=== PATIENT | male | born 1950 | race Hispanic/Latino ===

== ENCOUNTER 2021-04-10 06:37 | Day surgery (SDC) | payer MEDICARE ==
[2021-04-07 14:36] LABS: BASOPHILS % (AUTO) 0.3 % (0.0-5.0); EOSINOPHILS % (AUTO) 1.1 % (0.0-8.0); HEMATOCRIT 36.8 % (42-54); LYMPHOCYTES % (AUTO) 23.1 % (21.0-51.0); MEAN CORPUSCULAR HEMOGLOBIN 29.5 pg (27.0-33.0); MEAN CORPUSCULAR HGB CONC 33.4 g/dL (32.0-36.0); MEAN CORPUSCULAR VOLUME 88.2 fL (79-99); MONOCYTES % (AUTO) 8.8 % (3.0-13.0); NEUTROPHILS % (AUTO) 66.4 % (40.0-77.0); PLATELET COUNT (AUTO) 338 K/uL (130-400); RED BLOOD CELL COUNT(AUTO) 4.17 MIL/uL (4.50-6.20); RED CELL DISTRIBUTION WIDTH 12.9 % (11.0-15.5); WHITE BLOOD COUNT (AUTO) 9.3 K/uL (4.8-10.8)
[2021-04-07 14:47] LABS: CREATININE 0.8 mg/dL (0.5-1.5); POTASSIUM 4.4 mmol/L (3.5-5.1)
[2021-04-09 10:57] VITALS: BP 103/56
[~2021-04-10] VITALS: Ht 172.7 cm; Wt 71.5 kg
[2021-04-10] VITALS (17 sets, daily range): BP systolic 93–129; BP diastolic 46–69
[~2021-04-10 06:37] MED LIST: AEC81 PO; AMLO1CAP PO; AMOX1TAB16 PO; ASCO100031 PO; BIMA12.5OS OU; BRIM5DRO OU; CYCL30DR OU; DAPA5TAB PO; EZET10TA48 PO; FLUT16H NASAL; ISOS30TA92 PO; LEVO25CA4 PO; METF-444 PO; MULT-1258 PO; NITR0.4T50 SL; OMEG-148 PO; ROSU20TA23 PO; TAMS-1 PO; VITAMIN D2 PO
[2021-04-10] MEDS ORDERED: SODIUM CHLORIDE 0.9% 1000ML 1,000 ML IV ONE (06:47)
[2021-04-10] MEDS ORDERED: CEFTRIAXONE SODIUM 1 GM ONE (06:47)
[2021-04-10] MEDS ORDERED: ONDANSETRON HCL 4 MG/2 ML VIAL ONE (07:23)
[2021-04-10] MEDS ORDERED: DEXAMETHASONE SOD PHOSPHATE 10MG/ML 1ML VIAL ONE (07:23)
[2021-04-10] MEDS ORDERED: LIDOCAINE PF 2% 5ML ABBOJECT ONE ×2 (07:23→09:33)
[2021-04-10] MEDS ORDERED: MIDAZOLAM HCL 1 MG/ML 2ML VIAL ONE (07:23)
[2021-04-10] MEDS ORDERED: FENTANYL CITRATE PF 50 MCG/1 ML 2ML VIAL ONE ×2 (07:24→08:49)
[2021-04-10] MEDS ORDERED: PROPOFOL 10 MG/ML 20ML VIAL IV ONE (07:24)
[2021-04-10] MEDS ORDERED: CEFTRIAXONE SODIUM 1 GM IVP ONE (08:00)
[2021-04-10] MEDS ORDERED: MEPERIDINE-PF 25 MG/ML SYG ONE ×2 (08:05→09:31)
[2021-04-10] MEDS ORDERED: SUCCINYLCHOLINE CHLORIDE 20 MG/ML 10 ML VIAL ONE (08:06)
[2021-04-10] MEDS ORDERED: PHENYLEPHRINE HCL 10 MG/ML 1ML VIAL IV ONE (08:16)
[2021-04-10] MEDS ORDERED: EPHEDRINE SULFATE 50 MG/ML AMPULE ONE (08:24)
[2021-04-10] MEDS ORDERED: LIDOCAINE HCL 1% 20 ML VIAL ONE (08:48)
[2021-04-10] MEDS ORDERED: BUPIVACAINE/PF 0.25% 30ML VIAL IJ ONE (08:48)
[2021-04-10] MEDS ORDERED: NEOMY SULF/BACITRAC ZN/POLY OINT 30GM TUBE TP ONE (08:48)
== END 2021-04-10 11:45 ==
LOC: DAH 06:37
PROVIDERS: ATTEND Urology
DX: N40.1 Benign prostatic hyperplasia with lower urinary tract symptoms (principal); N47.1 Phimosis; R39.14 Feeling of incomplete bladder emptying; I10 Essential (primary) hypertension; E78.00 Pure hypercholesterolemia, unspecified; Z98.890 Other specified postprocedural states; Z79.899 Other long term (current) drug therapy; Z20.822 Contact with and (suspected) exposure to COVID-19
CPT/HCPCS: 36415; 54161; 55700; 76942; 80048; 82948 ×2; 85025; 93005; A4215; A4221; A4222; A4223; A4510; A4663; A6260; C9803; J0330; J0696; J1100; J2001 ×2; J2175 ×2; J2250; J2370; J2405; J2704; J3010 ×2; J3490 ×2; J7030; U0003

== ENCOUNTER → 2024-05-12 | Outpatient (CLI) | payer MEDICARE ==
[~2024-05-12] MED LIST changes: -AEC81 PO; -AMOX1TAB16 PO; -BIMA12.5OS OU; +LATA7.5D OU; -MULT-1258 PO; -OMEG-148 PO
== END | disposition home or self-care (01) ==
LOC: SHCH 14:02
PROVIDERS: ATTEND Internal Medicine Cardiovascular Disease
DX: I35.8 Other nonrheumatic aortic valve disorders (principal); I51.89 Other ill-defined heart diseases; I10 Essential (primary) hypertension
CPT/HCPCS: 93306